=== PATIENT | female | born 1975 | race Caucasian/White ===

== ENCOUNTER 2021-09-02 12:26 | Observation (INO) ==
[2021-09-02] MEDS ORDERED: SODIUM CHLORIDE 0.9% 250 ML IV PRN ×2 (12:53→13:15)
[2021-09-02 13:09] LABS: Basophils # (auto) 0.03 K/uL (0-0.2); Basophils % (auto) 0.4 %; Eosinophils # (auto) 0.15 K/uL (0-0.5); Hematocrit (blood only) 31.9 % (37-47); Hemoglobin 9.8 g/dL (12.0-16.0); Immature Granulocytes # (auto) 0.01 K/uL (0.00-0.02); Immature Granulocytes % (auto) 0.1 %; Lymphocytes # (auto) 1.73 K/uL (1.2-3.4); Mean Corpuscular Hemoglobin 22.1 pg (25-34); Mean Corpuscular Hgb Conc 30.7 g/dL (32-36); Mean Corpuscular Volume 71.8 fL (80-100); Mean Platelet Volume 10.1 fL (7.4-10.4); Monocytes # (auto) 0.51 K/uL (0.11-0.59); Monocytes % (auto) 6.8 %; Neutrophils # (auto) 5.09 K/uL (1.4-6.5); Neutrophils % (auto) 67.7 %; Platelet Count 402 K/uL (130-400); RDW Coefficient of Variation 18.2 % (11.5-14.5); RDW Standard Deviation 47.9 fL (36.4-46.3); Red Blood Count 4.44 M/uL (4.2-5.4); White Blood Count 7.52 K/uL (4.8-10.8)
[2021-09-02 13:25] LABS: Partial Thromboplastin Ratio 0.9; Partial Thromboplastin Time 25.5 Seconds (21.0-31.0); Prothrombin Time 10.2 Seconds (9.0-12.0)
[2021-09-02 13:29] LABS: Hypochromasia Present
--- NOTE | 2021-09-02 13:38 | OB/GYN Consultation ---
Date of Consultation September 02, 2021 Assessment & Plan (1) Episode of heavy vaginal bleedin -year-old G0 virgin female with history of fibroid uterus and long history of heavy periods with abnormal uterine bleeding for the last 3 weeks and hemorrhage today, Signs stable afebrile after IV fluid hydration, Uterus is enlarged with fibroids, she was originally scheduled for laparoscopic hysterectomy on October [address] García, Discussed options of doing D&C today and putting her on oral contraceptives to stop the bleeding and then follow-up with her [employer] for laparoscopic hysterectomy as scheduled, Blood transfusion if needed, patient agrees with recommendations. All questions were answered. (2) History of heavy periods: (3) Intramural uterine fibroid: (4) Anemia: History of Present Illness Reason for Consultation: Heavy VB History of Present Illness Patient is a 46 yo G0 virgin female who has long h/o fibroid uterus and AUB/ HMB She had hysteroscopy, removal of submucosal fibroids by Dr Grimes and it did not help. She was put on Depo Provera and received 2 injections and due for 3rd one now. SHe was planning to get it tomorrow in the office. She started to have heavy VB 3 weeks ago, soaking pads in 1 hour, which got more heavier this morning, passing large cloths, dripping blood on floor. She came to ER and ER physician emptied large cloths and called me. I emptied about 50 mL of clots from vagina and there was more blood trickling from cervix. She was scheduled for laparoscopic hysterectomy on October [address] Medrano. Discussed option of stopping bleeding with either IV estrogen or oral high-dose contraceptives or proceed with D&C and clear endometrium and then observe overnight and blood transfusion as needed. She and her brother are hoping to get her scheduled laparoscopic hysterectomy today. Explained to her that laparoscopic hysterectomy should be down on a scheduled basis with whole OR team and 2 company laundry worker available. She understood and she agrees for EUA, D&C under ultrasound guidance and then stay overnight with oral contraceptives. All Questions were answered. Allergies Allergy/AdvReac Type Severity Reaction Status Date / Time milk Allergy Unknown Unverified 09/02/21 14:20 adhesive tape AdvReac Rash Unverified 09/02/21 14:20 Home Medications Medication Instructions Recorded Confirmed Type sertraline 100 mg tablet 100 mg PO QAM 09/02/21 09/02/21 History Patient History Social History Smoking Status: Never smoker Feels Safe at Home: Yes Review of Systems Constitutional: as per Subjective / HPI Physical Exam Constitutional: well developed and well nourished She is not in distress, denies pain but she is covered with blood on her legs and on the floor Gastrointestinal (Abdomen): normal bowel sounds, soft, nontender, no hepatosplenomegaly Genitourinary: normal external appearance (Covered with blood and dried clots including her perineum labia and inner t) Speculum/Bimanual Exam: normal appearance of the cervix (Emptied 50 mL of blood clots from vagina and still trickling from cervical ), + abnormal uterine size (8-week size anteverted uterus), bladder normal to palpation, normal vaginal palpation and + uterus enlarged Start ultrasound is performed by myself, uterus is enlarged about 10 cm in length with 2 all subserosal/intramural fibroids and endometrium appears to be thickened at 13 mm Results & Data ([facility]) Vital Signs (Past 12 Hours) Vital Signs Temp Pulse Resp BP Pulse Ox 09/02/21 12:27 36.6 C 105 H 20 165/100 H 98 Laboratory Results Lab Results 09/02/21 09/02/21 09/02/21 Range/Units 12:58 12:58 12:58 WBC 7.52 (4.8-10.8) K/uL RBC 4.44 (4.2-5.4) M/uL Hgb 9.8 L (12.0-16.0) g/dL Hct 31.9 L (37-47) % MCV 71.8 L (80-100) fL MCH 22.1 L (25-34) pg MCHC 30.7 L (32-36) g/dL RDW Std Deviation 47.9 H (36.4-46.3) fL RDW Coeff of Mina 18.2 H (11.5-14.5) % Plt Count 402 H (130-400) K/uL MPV 10.1 (7.4-10.4) fL Immature Gran % (Auto) 0.1 % Neut % (Auto) 67.7 % Lymph % (Auto) 23.0 % [place] % (Auto) 6.8 % Eos % (Auto) 2.0 % Baso % (Auto) 0.4 % Neut # (Auto) 5.09 (1.4-6.5) K/uL Lymph # (Auto) 1.73 (1.2-3.4) K/uL [place] # (Auto) 0.51 (0.11-0.59) K/uL Eos # (Auto) 0.15 (0-0.5) K/uL Baso # (Auto) 0.03 (0-0.2) K/uL Immature Gran # (Auto) 0.01 (0.00-0.02) K/uL Hypochromasia Present PT 10.2 (9.0-12.0) Seconds INR 1.0 (0.9-1.1) APTT 25.5 (21.0-31.0) Seconds PTT Ratio 0.9 Sodium (136-145) mmol/L Potassium (3.5-5.1) mmol/L Chloride (98-107) mmol/L Carbon Dioxide (21-32) mmol/L Anion Gap (3-11) BUN (6-23) mg/dl Creatinine (0.6-1.2) mg/dl Est Cr Clr Drug Dosing ml/min Est GFR ( Amer) ml/min Est GFR (Non-Af Amer) ml/min BUN/Creatinine Ratio (10-20) Glucose (70-99(Fasting)) mg/dl Calcium (8.5-10.1) mg/dl Total Bilirubin (0.2-1.0) mg/dl AST (13-39) U/L ALT (7-52) U/L Alkaline Phosphatase (34-104) U/L Total Protein (6.0-8.3) gm/dl Albumin (3.4-5.0) gm/dl Globulin (2.5-4.0) gm/dl Albumin/Globulin Ratio (0.9-2) HCG, Qual (Negative) SARS-CoV-2, RNA, NAAT (NEGATIVE) Blood Type O Positive Antibody Screen NEGATIVE Crossmatch See Detail 09/02/21 09/02/21 09/02/21 Range/Units 12:58 12:58 13:28 WBC (4.8-10.8) K/uL RBC (4.2-5.4) M/uL Hgb (12.0-16.0) g/dL Hct (37-47) % MCV (80-100) fL MCH (25-34) pg MCHC (32-36) g/dL RDW Std Deviation (36.4-46.3) fL RDW Coeff of Mina (11.5-14.5) % Plt Count (130-400) K/uL MPV (7.4-10.4) fL Immature Gran % (Auto) % Neut % (Auto) % Lymph % (Auto) % [place] % (Auto) % Eos % (Auto) % Baso % (Auto) % Neut # (Auto) (1.4-6.5) K/uL Lymph # (Auto) (1.2-3.4) K/uL [place] # (Auto) (0.11-0.59) K/uL Eos # (Auto) (0-0.5) K/uL Baso # (Auto) (0-0.2) K/uL Immature Gran # (Auto) (0.00-0.02) K/uL Hypochromasia PT (9.0-12.0) Seconds INR (0.9-1.1) APTT (21.0-31.0) Seconds PTT Ratio Sodium 137 (136-145) mmol/L Potassium 3.6 (3.5-5.1) mmol/L Chloride 105 (98-107) mmol/L Carbon Dioxide 23 (21-32) mmol/L Anion Gap 9 (3-11) BUN 10 (6-23) mg/dl Creatinine 0.70 (0.6-1.2) mg/dl Est Cr Clr Drug Dosing 123.3 ml/min Est GFR ( Amer) 120.4 ml/min Est GFR (Non-Af Amer) 103.9 ml/min BUN/Creatinine Ratio 14.3 (10-20) Glucose 103 H (70-99(Fasting)) mg/dl Calcium 9.4 (8.5-10.1) mg/dl Total Bilirubin 0.3 (0.2-1.0) mg/dl AST 15 (13-39) U/L ALT 13 (7-52) U/L Alkaline Phosphatase 83 (34-104) U/L Total Protein 6.9 (6.0-8.3) gm/dl Albumin 4.1 (3.4-5.0) gm/dl Globulin 2.8 (2.5-4.0) gm/dl Albumin/Globulin Ratio 1.5 (0.9-2) HCG, Qual Negative (Negative) SARS-CoV-2, RNA, NAAT NEGATIVE (NEGATIVE) Blood Type Antibody Screen Crossmatch
[2021-09-02 13:40] LABS: Albumin Globulin Ratio 1.5 (0.9-2); Albumin Level 4.1 gm/dl (3.4-5.0); BUN Creatinine Ratio 14.3 (10-20); Bilirubin,Total 0.3 mg/dl (0.2-1.0); Calcium 9.4 mg/dl (8.5-10.1); Creatinine Clr Calc Pharmacy 123.3 ml/min; Est GFR (African American) 120.4 ml/min; Est GFR (Non-African American) 103.9 ml/min; Globulin 2.8 gm/dl (2.5-4.0); Potassium 3.6 mmol/L (3.5-5.1); Total Protein 6.9 gm/dl (6.0-8.3)
[2021-09-02 13:48] LABS: Pregnancy Test, Serum Negative (Negative)
[2021-09-02] MEDS ORDERED: ceFAZolin 2000MG 2,000 MG/15 ML SYR IV ONE (14:38)
[2021-09-02] MEDS ORDERED: PROPOFOL IV EMULSION 10 MG/ML 20 ML VIAL IV ONE (14:45)
[2021-09-02] MEDS ORDERED: LIDOCAINE 2% 2 ML VIAL/AMP(20MG/ML) INFIL ONE (14:45)
[2021-09-02] MEDS ORDERED: MIDAZOLAM HCL 1 MG/ML 2ML VIAL ONE (14:46)
[2021-09-02] MEDS ORDERED: fentaNYL citrate 100 MCG/2 ML VIAL ONE (14:46)
--- NOTE | 2021-09-02 14:52 | Anesthesiology Consultation ---
Date of Service September 02, 2021 Assessment & Plan (1) Encounter for pre-operative examination: Chart Review Chart Review: Acceptable Risk for Surgery and Patient NOT seen in Pre Admission Testing Consults Requested none History Surgery Operation Date: 09/02/21 11:30 Proposed Procedures p Dilation and Curettage - Johanna Collazo MD Height/Weight Height: 5 ft 7 in Weight: 102 kg Allergies Allergy/AdvReac Type Severity Reaction Status Date / Time milk Allergy Unknown Unverified 09/02/21 14:20 adhesive tape AdvReac Rash Unverified 09/02/21 14:20 Medications Home Medications Medication Instructions Recorded Confirmed Last Taken sertraline 100 mg tablet 100 mg PO QAM 09/02/21 09/02/21 08/31/21 Social History Smoking Status: Never smoker Physical Exam Vital Signs Last Vital Signs Temp 97.9 F 09/02/21 12:27 Pulse 85 09/02/21 13:37 Resp 20 09/02/21 13:37 BP 148/106 H 09/02/21 13:03 Pulse Ox 100 09/02/21 13:37 Testing Laboratory Results 09/02/21 12:58 09/02/21 12:58 PT 10.2 Seconds (9.0-12.0) 09/02/21 12:58 INR 1.0 (0.9-1.1) 09/02/21 12:58 APTT 25.5 Seconds (21.0-31.0) 09/02/21 12:58 Blood Type O Positive 09/02/21 12:58 Antibody Screen NEGATIVE 09/02/21 12:58
[2021-09-02] MEDS ORDERED: ATROPINE SULFATE 0.1 MG/ML 10ML SYR IV PRN (15:03)
[2021-09-02] MEDS ORDERED: ONDANSETRON INJ 2 MG/ML 2 ML VIAL IV PRN ×2 (15:03→16:31)
[2021-09-02] MEDS ORDERED: ePHEDrine sulfate 50 MG/ML AMP IV PRN (15:03)
[2021-09-02] MEDS ORDERED: fentaNYL citrate 100 MCG/2 ML VIAL IV PRN (15:03)
[2021-09-02] MEDS ORDERED: SCOPOLAMINE 1 MG TDSY TD ONE (15:07)
[2021-09-02] MEDS ORDERED: SUCCINYLCHOLINE CHLORIDE 20 MG/ML 10 ML VIAL IV ONE (15:20)
[2021-09-02] MEDS ORDERED: ROCURONIUM BROMIDE 10 MG/ML 5 ML VIAL IV ONE (15:20)
[2021-09-02] MEDS ORDERED: METHYLERGONOVINE MALEATE 0.2 MG/ML AMP ONE (15:32)
--- NOTE | 2021-09-02 16:06 | Emergency Department Note ---
History of Present Illness General Chief complaint: Vaginal Bleeding Stated complaint: FIBROID ON UTERUS/BLOOD GUSHING OUT OF VAGINIA Time Seen by Provider: 09/02/21 12:30 Source: patient Mode of arrival: ambulatory Limitations: no limitations History of Present Illness This patient is a 46-year-old female who presents to the emergency department for evaluation of heavy vaginal bleeding. Patient reports that she has a history of a uterine fibroid and has had intermittent abnormal vaginal bleeding since last November. She reports that that about 30 minutes prior to arrival, she developed very heavy vaginal bleeding. She states that she has been bleeding through any pads and all of her clothes. She denies any significant pain. Home Medications Medication Instructions Recorded Confirmed Type sertraline 100 mg tablet 100 mg PO QAM 09/02/21 09/02/21 History Allergies Allergy/AdvReac Type Severity Reaction Status Date / Time milk Allergy Unknown Unverified 09/02/21 14:20 adhesive tape AdvReac Rash Unverified 09/02/21 14:20 Past Med/Surg History Medical History (Updated 09/02/21 @ 21:20 by Petty Dickey PA-C) Intramural uterine fibroid Social History Smoking Status: Never smoker Second Hand Exposure: No; Do You Dip or Chew Tobacco: No; Hx Alcohol Use: Yes Alcohol type: hard liquor Hx Substance Use: No Preferred Language: British Communication Ability: Effective Multiple Slide Operator Required: No Beliefs That Will Affect Care: None Current Living Situation: Alone Feels Safe at Home: Yes Assistive Devices: Contacts and Glasses Review of Systems A total of 10 systems reviewed and were otherwise negative Physical Exam Vital Signs Vital Signs - 24 hr 09/02/21 12:27 09/02/21 13:03 09/02/21 13:37 Temperature 36.6 C Temperature Source Temporal Artery Scan Pulse Rate 105 H 85 Pulse Rate [Apical] 108 H Pulse Rhythm Regular Regular Pulse Rhythm [Apical] Regular Pulse Strength Normal Pulse Strength [Apical] Normal Respiratory Rate 20 20 20 Respiratory Effort / Characteristics Non-Labored Spontaneous Non-Labored Spontaneous Respiratory Depth Normal Normal Respiratory Pattern Regular Regular Blood Pressure 165/100 H Blood Pressure [Left Arm] 148/106 H Blood Pressure Mean 121 Blood Pressure Mean [Left Arm] 120 Blood Pressure Position Sitting Blood Pressure Position [Left Arm] Sitting Pulse Oximetry 98 100 100 Oxygen Delivery Method Room Air Room Air Room Air Sepsis Recent Fever Within 48 Hours No Sepsis New/Unexplained Change in Mental Status N/A Sepsis Action Taken by Nursing No Action Required 09/02/21 14:50 Temperature 37.1 C Temperature Source Oral Pulse Rate Pulse Rate [Apical] 85 Pulse Rhythm Pulse Rhythm [Apical] Regular Pulse Strength Pulse Strength [Apical] Normal Respiratory Rate 20 Respiratory Effort / Characteristics Non-Labored Spontaneous Respiratory Depth Normal Respiratory Pattern Regular Blood Pressure Blood Pressure [Left Arm] 166/98 H Blood Pressure Mean Blood Pressure Mean [Left Arm] 120 Blood Pressure Position Blood Pressure Position [Left Arm] Sitting Pulse Oximetry 99 Oxygen Delivery Method Room Air Sepsis Recent Fever Within 48 Hours Sepsis New/Unexplained Change in Mental Status Sepsis Action Taken by Nursing VITALS: Vitals are noted on the nurse's note and reviewed by myself. GENERAL: This is a 46-year-old female, in no acute distress, well-developed well-nourished. SKIN: No rashes. EYES: Pupils equal round and reactive to light and accommodation. MOUTH: Mucous membranes moist. NECK: Supple without nuchal rigidity. HEART: Regular rate and rhythm without murmurs gallops or rubs. LUNGS: Clear to auscultation bilaterally without wheezes, rales or rhonchi. ABDOMEN: Positive bowel sounds x 4. Soft, nontender to palpation. PELVIC: Normal external female genitalia. Significant amount of blood within the vaginal vault. Cervix unable to be visualized due to bleeding. NEURO: Patient was alert and oriented to person place and time. Course Administered Medications Docusate Sodium (Docusate Sodium 100 Mg Cap) 100 mg PO BID ASYA Stop: 10/02/21 20:59 Last Admin: 09/02/21 20:23 Dose: 100 mg Documented by: [id number] Sertraline HCl (Sertraline Hcl 100 Mg Tablet) 100 mg PO QPM ASYA Stop: 10/02/21 20:59 Last Admin: 09/02/21 20:24 Dose: 100 mg Documented by: [id number] Discontinued Medications Cefazolin Sodium (Ancef 2000mg) 2,000 mg in 15 mls @ 3.75 mls/min IV PREOP ONE Stop: 09/02/21 14:41 Last Admin: 09/02/21 15:45 Dose: 3.75 mls/min Documented by: [id number] Medroxyprogesterone Acetate (Medroxyprogesterone Acetate 150 Mg/Ml Vial) 150 mg IM ONE ONE Stop: 09/02/21 17:04 Last Admin: 09/02/21 19:47 Dose: 150 mg Documented by: [id number] Methylergonovine Maleate (Methylergonovine Maleate 0.2 Mg/Ml Amp) Confirm Administered Dose 0.2 mg .ROUTE .STK-MED ONE Stop: 09/02/21 15:33 Last Admin: 09/02/21 16:22 Dose: 0.2 mg Documented by: [id number] Cosigned by: [id number] Misoprostol (Misoprostol 200 Mcg Tab) Confirm Administered Dose 1,000 mcg .ROUTE .STK-MED ONE Stop: 09/02/21 16:21 Last Admin: 09/02/21 16:22 Dose: 1,000 mcg Documented by: [id number] Scopolamine (Scopolamine 1 Mg Tdsy) Confirm Administered Dose 1 mg TD .STK-MED ONE Stop: 09/02/21 15:08 Last Admin: 09/02/21 15:14 Dose: 1 mg Documented by: [id number] Silver Nitrate/Potassium Nitrate (Silver Nitr/Potassium Nitrate Applicator) Confirm Administered Dose 4 appl .ROUTE .STK-MED ONE Stop: 09/02/21 16:23 Last Admin: 09/02/21 16:25 Dose: 4 appl Documented by: [id number] Critical Care Time Critical Care Time: Yes Total Critical Care Time: 50 I have personally spent greater than 50 minutes of critical care time in the direct management of this patient. This includes bedside care, interpretation of diagnostic studies, and testing, discussion with consultants, patient, and family members, and other required patient management activities. This 50 minutes is in excess of all separately billable procedures. Medical Decision Making Differential Diagnosis Etiologies such as threatened AB, miscarriage, ectopic , dysfunction uterine bleeding, bleeding dyscrasia, trauma, infection, as well as others were entertained. Home Medications Current Medication List: was personally reviewed by me Laboratory Data Attestation: I reviewed the patient's lab results. Result diagrams: 09/02/21 19:58 09/02/21 12:58 Lab Results 09/02/21 09/02/21 09/02/21 Range/Units 12:58 12:58 12:58 WBC 7.52 (4.8-10.8) K/uL RBC 4.44 (4.2-5.4) M/uL Hgb 9.8 L (12.0-16.0) g/dL Hct 31.9 L (37-47) % MCV 71.8 L (80-100) fL MCH 22.1 L (25-34) pg MCHC 30.7 L (32-36) g/dL RDW Std Deviation 47.9 H (36.4-46.3) fL RDW Coeff of Mina 18.2 H (11.5-14.5) % Plt Count 402 H (130-400) K/uL MPV 10.1 (7.4-10.4) fL Immature Gran % (Auto) 0.1 % Neut % (Auto) 67.7 % Lymph % (Auto) 23.0 % Saunders % (Auto) 6.8 % Eos % (Auto) 2.0 % Baso % (Auto) 0.4 % Neut # (Auto) 5.09 (1.4-6.5) K/uL Lymph # (Auto) 1.73 (1.2-3.4) K/uL Saunders # (Auto) 0.51 (0.11-0.59) K/uL Eos # (Auto) 0.15 (0-0.5) K/uL Baso # (Auto) 0.03 (0-0.2) K/uL Immature Gran # (Auto) 0.01 (0.00-0.02) K/uL Hypochromasia Present PT 10.2 (9.0-12.0) Seconds INR 1.0 (0.9-1.1) APTT 25.5 (21.0-31.0) Seconds PTT Ratio 0.9 Sodium (136-145) mmol/L Potassium (3.5-5.1) mmol/L Chloride (98-107) mmol/L Carbon Dioxide (21-32) mmol/L Anion Gap (3-11) BUN (6-23) mg/dl Creatinine (0.6-1.2) mg/dl Est Cr Clr Drug Dosing ml/min Est GFR ( Amer) ml/min Est GFR (Non-Af Amer) ml/min BUN/Creatinine Ratio (10-20) Glucose (70-99(Fasting)) mg/dl Calcium (8.5-10.1) mg/dl Total Bilirubin (0.2-1.0) mg/dl AST (13-39) U/L ALT (7-52) U/L Alkaline Phosphatase (34-104) U/L Total Protein (6.0-8.3) gm/dl Albumin (3.4-5.0) gm/dl Globulin (2.5-4.0) gm/dl Albumin/Globulin Ratio (0.9-2) HCG, Qual (Negative) SARS-CoV-2, RNA, NAAT (NEGATIVE) Blood Type O Positive Blood Type Recheck Antibody Screen NEGATIVE Crossmatch See Detail 09/02/21 09/02/21 09/02/21 Range/Units 12:58 12:58 13:28 WBC (4.8-10.8) K/uL RBC (4.2-5.4) M/uL Hgb (12.0-16.0) g/dL Hct (37-47) % MCV (80-100) fL MCH (25-34) pg MCHC (32-36) g/dL RDW Std Deviation (36.4-46.3) fL RDW Coeff of Mina (11.5-14.5) % Plt Count (130-400) K/uL MPV (7.4-10.4) fL Immature Gran % (Auto) % Neut % (Auto) % Lymph % (Auto) % [place] % (Auto) % Eos % (Auto) % Baso % (Auto) % Neut # (Auto) (1.4-6.5) K/uL Lymph # (Auto) (1.2-3.4) K/uL Saunders # (Auto) (0.11-0.59) K/uL Eos # (Auto) (0-0.5) K/uL Baso # (Auto) (0-0.2) K/uL Immature Gran # (Auto) (0.00-0.02) K/uL Hypochromasia PT (9.0-12.0) Seconds INR (0.9-1.1) APTT (21.0-31.0) Seconds PTT Ratio Sodium 137 (136-145) mmol/L Potassium 3.6 (3.5-5.1) mmol/L Chloride 105 (98-107) mmol/L Carbon Dioxide 23 (21-32) mmol/L Anion Gap 9 (3-11) BUN 10 (6-23) mg/dl Creatinine 0.70 (0.6-1.2) mg/dl Est Cr Clr Drug Dosing 123.3 ml/min Est GFR ( Amer) 120.4 ml/min Est GFR (Non-Af Amer) 103.9 ml/min BUN/Creatinine Ratio 14.3 (10-20) Glucose 103 H (70-99(Fasting)) mg/dl Calcium 9.4 (8.5-10.1) mg/dl Total Bilirubin 0.3 (0.2-1.0) mg/dl AST 15 (13-39) U/L ALT 13 (7-52) U/L Alkaline Phosphatase 83 (34-104) U/L Total Protein 6.9 (6.0-8.3) gm/dl Albumin 4.1 (3.4-5.0) gm/dl Globulin 2.8 (2.5-4.0) gm/dl Albumin/Globulin Ratio 1.5 (0.9-2) HCG, Qual Negative (Negative) SARS-CoV-2, RNA, NAAT NEGATIVE (NEGATIVE) Blood Type Blood Type Recheck Antibody Screen Crossmatch 09/02/21 Range/Units 14:18 WBC (4.8-10.8) K/uL RBC (4.2-5.4) M/uL Hgb (12.0-16.0) g/dL Hct (37-47) % MCV (80-100) fL MCH (25-34) pg MCHC (32-36) g/dL RDW Std Deviation (36.4-46.3) fL RDW Coeff of Mina (11.5-14.5) % Plt Count (130-400) K/uL MPV (7.4-10.4) fL Immature Gran % (Auto) % Neut % (Auto) % Lymph % (Auto) % [place] % (Auto) % Eos % (Auto) % Baso % (Auto) % Neut # (Auto) (1.4-6.5) K/uL Lymph # (Auto) (1.2-3.4) K/uL [place]unders # (Auto) (0.11-0.59) K/uL Eos # (Auto) (0-0.5) K/uL Baso # (Auto) (0-0.2) K/uL Immature Gran # (Auto) (0.00-0.02) K/uL Hypochromasia PT (9.0-12.0) Seconds INR (0.9-1.1) APTT (21.0-31.0) Seconds PTT Ratio Sodium (136-145) mmol/L Potassium (3.5-5.1) mmol/L Chloride (98-107) mmol/L Carbon Dioxide (21-32) mmol/L Anion Gap (3-11) BUN (6-23) mg/dl Creatinine (0.6-1.2) mg/dl Est Cr Clr Drug Dosing ml/min Est GFR ( Amer) ml/min Est GFR (Non-Af Amer) ml/min BUN/Creatinine Ratio (10-20) Glucose (70-99(Fasting)) mg/dl Calcium (8.5-10.1) mg/dl Total Bilirubin (0.2-1.0) mg/dl AST (13-39) U/L ALT (7-52) U/L Alkaline Phosphatase (34-104) U/L Total Protein (6.0-8.3) gm/dl Albumin (3.4-5.0) gm/dl Globulin (2.5-4.0) gm/dl Albumin/Globulin Ratio (0.9-2) HCG, Qual (Negative) SARS-CoV-2, RNA, NAAT (NEGATIVE) Blood Type Blood Type Recheck O Positive Antibody Screen Crossmatch MDM Narrative Continuous naval designer: Order was placed for continuous naval designer. Patient was placed on the naval designer. Patient was noted to be in normal sinus rhythm at an initial rate of 90 bpm. The patient is a 46-year-old female who presents today complaining of heavy vaginal bleeding. Patient has a history of a fibroid and began with heavy bleeding 1 hour prior to arrival. On examination, she has very heavy vaginal bleeding which was not cleared using cleaning swabs. PHYSICAL THERAPY AIDES TEACHER was consulted and did arrive at bedside. They ultimately elected to take the patient to the OR for D&C. 1 unit of blood was ordered while the patient was in the emergency department. Patient remained stable while under the care of the emergency department. Impression & Plan Episode of heavy vaginal bleeding, Intramural uterine fibroid, Anemia Discharge Plan Visit Data Chief Complaint: Vaginal Bleeding Stated Complaint: FIBROID ON UTERUS/BLOOD GUSHING OUT OF VAGINIA ED Provider: Alfred Colon ED Midlevel Provider: Petty Dickey Discharge Problem: Episode of heavy vaginal bleeding, Intramural uterine fibroid, Anemia Patient Disposition: Admitted As Inpatient Discharge Instructions Interventions: ED Discharge Assessment Last Done: 09/02/21 19:17
[2021-09-02] MEDS ORDERED: miSOPROStoL 200 MCG TAB ONE (16:20)
[2021-09-02] MEDS ORDERED: SILVER NITR/POTASSIUM NITRATE APPLICATOR ONE (16:22)
[2021-09-02] MEDS ORDERED: MEPERIDINE HCL 50 MG/ML CARP IV PRN (16:31)
[2021-09-02] MEDS ORDERED: ZOLPIDEM TARTRATE 5 MG TAB PO PRN (16:31)
[2021-09-02] MEDS ORDERED: MEPERIDINE HCL 25 MG/ML CARP/VIAL IV PRN (16:31)
[2021-09-02] MEDS ORDERED: oxyCODONE/ACETAMINOPHEN 5mg/325mg TAB PO PRN ×2 (16:31)
[2021-09-02] MEDS ORDERED: bisacodyL 10 MG SUPP PR PRN (16:31)
[2021-09-02] MEDS ORDERED: PROMETHAZINE HCL 12.5 MG in SODIUM CHLORIDE 0.9% 50 ML IV PRN (16:31)
[2021-09-02] MEDS ORDERED: ACETAMINOPHEN 325 MG TAB PO PRN (16:31)
[2021-09-02] MEDS ORDERED: SIMETHICONE 80 MG CHEW PO PRN (16:31)
[2021-09-02] MEDS ORDERED: LEUPROLIDE ACETATE 3.75 MG IM ONE (16:34)
--- NOTE | 2021-09-02 16:36 | Post Operative Brief Note ---
Immediate Post Op Note v1 Date of Surgery September 02, 2021 Pre & Post Diagnosis Operation Date: 09/02/21 11:30 Pre-Op Diagnosis: FIBROID ON UTERUS/heavy vaginal bleeding Post-Op Diagnosis: FIBROID ON UTERUS/heavy vaginal bleeding I identified the patient and participated in the time-out.: Yes Procedure Operation Date: 09/02/21 11:30 Actual Procedures EUA, Dilation and Curettage(Not Applicable) under US guidance - Johanna Salguero MD Surgeon Johanna Collazo MD Panelbeater Dr Hayes Estimated Blood Loss 50 Findings Consistent with Post-Op Diagnosis Drains Other (metal straight cath done for 300ml clear yellow urine) Anesthesia Type General Complications none Disposition Accompanied Patient To Recovery: Yes
[2021-09-02] MEDS ORDERED: LACTATED RINGER'S 1,000 ML IV SCH (16:45)
[2021-09-02 17:15] LABS: Hematocrit (blood only) 32.2 % (37-47); Hemoglobin 9.7 g/dL (12.0-16.0)
--- NOTE | 2021-09-02 17:38 | Anesthesiology Progress Note ---
Date of Service September 02, 2021 Anesthesia Post Procedure Vital Signs Vital Signs: Temp Pulse Pulse Resp BP BP Pulse Ox 09/02/21 17:30 72 18 154/97 H 98 09/02/21 17:20 67 20 160/99 H 100 09/02/21 17:10 68 14 159/96 H 100 09/02/21 17:00 70 18 151/97 H 100 09/02/21 16:50 79 22 155/92 H 100 09/02/21 16:42 36.5 C 92 H 20 151/91 H 95 09/02/21 14:50 37.1 C 85 20 166/98 H 99 09/02/21 13:37 85 20 100 09/02/21 13:03 108 H 20 148/106 H 100 09/02/21 12:27 36.6 C 105 H 20 165/100 H 98 Pain Intensity Vaginal: Pain Intensity: 2 Transfer of Care Handoff Completed per policy Notes Mental Status: alert / awake / arousable and participated in evaluation Patient Amnestic to Procedure: Yes Nausea / Vomiting: adequately controlled Pain: adequately controlled Airway Patency, RR, SpO2: stable & adequate BP & HR: stable & adequate Hydration State: stable & adequate Anesthetic Complications: no major complications apparent and Pt Satisfied with anesthetic care
[2021-09-02 20:12] LABS: Hematocrit (blood only) 30.4 % (37-47); Hemoglobin 9.3 g/dL (12.0-16.0)
[2021-09-02] MEDS ORDERED: Nursing to Pharmacy Communication SCH (20:15)
[2021-09-02] MEDS: DOCUSATE SODIUM 100 MG CAP PO SCH (20:23)
[2021-09-02] MEDS ORDERED: SERTRALINE HCL 100 MG TABLET PO SCH ×2 (21:00)
[2021-09-02] MEDS: IBUPROFEN 600 MG TAB PO PRN (21:44)
--- NOTE | 2021-09-02 22:56 | Operative Report (OR) ---
DATE OF SURGERY: 09/02/2021. PREOPERATIVE DIAGNOSES: The patient is a 46-year-old G0 female with history of fibroid uterus, heavy periods, and on Depo-Provera, and presenting with episodes of heavy vaginal bleeding and anemia. POSTOPERATIVE DIAGNOSES: The patient is a 46-year-old G0 female with history of fibroid uterus, heavy periods, and on Depo-Provera, and presenting with episodes of heavy vaginal bleeding and anemia. PROCEDURE: Exam under anesthesia, dilatation and curettage under ultrasound guidance. SURGEON: Johanna Collazo MD BUMPER MACHINE OPERATOR: Chintan Hayes MD ESTIMATED BLOOD LOSS: 50 mL. DRAINS: Straight catheter drained 300 mL of clear urine. ANESTHESIA: General endotracheal. COMPLICATIONS: None. FINDINGS: Exam under anesthesia revealed 10-week size anteverted uterus, nonpalpable adnexa. Before procedure, bedside abdominopelvic ultrasound was done by training technician. The uterus was measured to be 11.5 cm in length and there was a 2.5X 3 cm anterior intramural / subserosal fibroid as well as there was a posterior about 5X6 cm fibroid on the posterior uterine wall intramural, minimally abutting the endometrium. Endometrium appeared to be normal. DESCRIPTION OF PROCEDURE: The patient was taken to the Operating Room where general anesthesia was given without difficulty. She was placed in dorsal lithotomy position, prepared and draped in the usual sterile fashion and a timeout was done. She was given 2 grams of cefazolin before surgery. Then bladder was drained with a straight catheter and then examination under anesthesia was done with the above findings. A speculum was placed in the patient's vagina. Cervix was visualized, grasped with single tooth tenaculum, and cervix was dilated with Hegar dilators until #10, and a small curette was placed into the uterus under ultrasound guidance and then uterine cavity was curetted and small amount of bloody and endometrial tissue was obtained. The endometrial cavity was smooth on the anterior and lateral friedman and there was a minimal bulge on the posterior wall with no intracavitary displacement. Then polyp forceps was introduced from cervix under ultrasound guidance and grabbed tissue with bloody endometrium and taken out and then curette was repeated until uterine cry sensation was felt in all quadrants and the uterus was felt to be empty and bleeding was minimal. Then instruments were removed from the patient's vagina. Cervix was visualized and no bleeding from tenaculum site and no bleeding from cervical os at the end of the procedure. She was given 1000 mcg of rectal Cytotec and 0.2 mg of IM Methergine. She tolerated the procedure well. Sponge, lap, needle count was correct x2. She was taken off from lithotomy position, extubated successfully. She was taken to Recovery Room in stable condition. No complications happened. I was and Dr. Hayes was present during whole procedure. My campaign assistant was needed to do retraction and hemostasis control and interpretation of ultrasound during procedure. Job ID: [id number] [facility]
--- NOTE | 2021-09-02 23:24 | Obstetrical Progress Note ---
Date of Service September 02, 2021 Assessment & Plan Admission and Anticipated Discharge Date Admission Date: September 02, 2021 Subjective Postop check Patient is seen and examined Feels well, no complaints Pain is under control with meds No CP/ SOB/ Dizziness/ N&V/ VB/ Leg pain OOB to BRX2 voided without problems. Tolerating clears and regular diet. Minimal VB Explained about the surgery and findings Vital Signs Temp Pulse Pulse Pulse Resp BP BP 09/02/21 23:19 36.9 C 65 16 121/79 09/02/21 20:30 36.8 C 82 16 144/59 H 09/02/21 19:30 36.9 C 76 16 129/69 09/02/21 18:52 36.6 C 74 18 161/75 H 09/02/21 18:10 36.8 C 66 18 151/85 H 09/02/21 17:50 36.4 C L 88 16 154/91 H 09/02/21 17:40 36.4 C L 69 18 152/88 H 09/02/21 17:30 72 18 154/97 H 09/02/21 17:20 67 20 160/99 H 09/02/21 17:10 68 14 159/96 H 09/02/21 17:00 70 18 151/97 H 09/02/21 16:50 79 22 155/92 H 09/02/21 16:42 36.5 C 92 H 20 151/91 H 09/02/21 14:50 37.1 C 85 20 166/98 H 09/02/21 13:37 85 20 09/02/21 13:03 108 H 20 148/106 H 09/02/21 12:27 36.6 C 105 H 20 165/100 H Pulse Ox 09/02/21 23:19 97 09/02/21 20:30 100 09/02/21 19:30 97 09/02/21 18:52 98 09/02/21 18:10 98 09/02/21 17:50 98 09/02/21 17:40 98 09/02/21 17:30 98 09/02/21 17:20 100 09/02/21 17:10 100 09/02/21 17:00 100 09/02/21 16:50 100 09/02/21 16:42 95 09/02/21 14:50 99 09/02/21 13:37 100 09/02/21 13:03 100 09/02/21 12:27 98 Lab Results 09/02/21 09/02/21 09/02/21 Range/Units 12:58 12:58 12:58 WBC 7.52 (4.8-10.8) K/uL RBC 4.44 (4.2-5.4) M/uL Hgb 9.8 L (12.0-16.0) g/dL Hct 31.9 L (37-47) % MCV 71.8 L (80-100) fL MCH 22.1 L (25-34) pg MCHC 30.7 L (32-36) g/dL RDW Std Deviation 47.9 H (36.4-46.3) fL RDW Coeff of Mina 18.2 H (11.5-14.5) % Plt Count 402 H (130-400) K/uL MPV 10.1 (7.4-10.4) fL Immature Gran % (Auto) 0.1 % Neut % (Auto) 67.7 % Lymph % (Auto) 23.0 % [place] % (Auto) 6.8 % Eos % (Auto) 2.0 % Baso % (Auto) 0.4 % Neut # (Auto) 5.09 (1.4-6.5) K/uL Lymph # (Auto) 1.73 (1.2-3.4) K/uL [place] # (Auto) 0.51 (0.11-0.59) K/uL Eos # (Auto) 0.15 (0-0.5) K/uL Baso # (Auto) 0.03 (0-0.2) K/uL Immature Gran # (Auto) 0.01 (0.00-0.02) K/uL Hypochromasia Present PT 10.2 (9.0-12.0) Seconds INR 1.0 (0.9-1.1) APTT 25.5 (21.0-31.0) Seconds PTT Ratio 0.9 Sodium (136-145) mmol/L Potassium (3.5-5.1) mmol/L Chloride (98-107) mmol/L Carbon Dioxide (21-32) mmol/L Anion Gap (3-11) BUN (6-23) mg/dl Creatinine (0.6-1.2) mg/dl Est Cr Clr Drug Dosing ml/min Est GFR ( Amer) ml/min Est GFR (Non-Af Amer) ml/min BUN/Creatinine Ratio (10-20) Glucose (70-99(Fasting)) mg/dl Calcium (8.5-10.1) mg/dl Total Bilirubin (0.2-1.0) mg/dl AST (13-39) U/L ALT (7-52) U/L Alkaline Phosphatase (34-104) U/L Total Protein (6.0-8.3) gm/dl Albumin (3.4-5.0) gm/dl Globulin (2.5-4.0) gm/dl Albumin/Globulin Ratio (0.9-2) HCG, Qual (Negative) SARS-CoV-2, RNA, NAAT (NEGATIVE) Blood Type O Positive Blood Type Recheck Antibody Screen NEGATIVE Crossmatch See Detail 09/02/21 09/02/21 09/02/21 Range/Units 12:58 12:58 13:28 WBC (4.8-10.8) K/uL RBC (4.2-5.4) M/uL Hgb (12.0-16.0) g/dL Hct (37-47) % MCV (80-100) fL MCH (25-34) pg MCHC (32-36) g/dL RDW Std Deviation (36.4-46.3) fL RDW Coeff of Mina (11.5-14.5) % Plt Count (130-400) K/uL MPV (7.4-10.4) fL Immature Gran % (Auto) % Neut % (Auto) % Lymph % (Auto) % [place] % (Auto) % Eos % (Auto) % Baso % (Auto) % Neut # (Auto) (1.4-6.5) K/uL Lymph # (Auto) (1.2-3.4) K/uL [place] # (Auto) (0.11-0.59) K/uL Eos # (Auto) (0-0.5) K/uL Baso # (Auto) (0-0.2) K/uL Immature Gran # (Auto) (0.00-0.02) K/uL Hypochromasia PT (9.0-12.0) Seconds INR (0.9-1.1) APTT (21.0-31.0) Seconds PTT Ratio Sodium 137 (136-145) mmol/L Potassium 3.6 (3.5-5.1) mmol/L Chloride 105 (98-107) mmol/L Carbon Dioxide 23 (21-32) mmol/L Anion Gap 9 (3-11) BUN 10 (6-23) mg/dl Creatinine 0.70 (0.6-1.2) mg/dl Est Cr Clr Drug Dosing 123.3 ml/min Est GFR ( Amer) 120.4 ml/min Est GFR (Non-Af Amer) 103.9 ml/min BUN/Creatinine Ratio 14.3 (10-20) Glucose 103 H (70-99(Fasting)) mg/dl Calcium 9.4 (8.5-10.1) mg/dl Total Bilirubin 0.3 (0.2-1.0) mg/dl AST 15 (13-39) U/L ALT 13 (7-52) U/L Alkaline Phosphatase 83 (34-104) U/L Total Protein 6.9 (6.0-8.3) gm/dl Albumin 4.1 (3.4-5.0) gm/dl Globulin 2.8 (2.5-4.0) gm/dl Albumin/Globulin Ratio 1.5 (0.9-2) HCG, Qual Negative (Negative) SARS-CoV-2, RNA, NAAT NEGATIVE (NEGATIVE) Blood Type Blood Type Recheck Antibody Screen Crossmatch 09/02/21 09/02/21 09/02/21 Range/Units 14:18 16:57 19:58 WBC (4.8-10.8) K/uL RBC (4.2-5.4) M/uL Hgb 9.7 L 9.3 L (12.0-16.0) g/dL Hct 32.2 L 30.4 L (37-47) % MCV (80-100) fL MCH (25-34) pg MCHC (32-36) g/dL RDW Std Deviation (36.4-46.3) fL RDW Coeff of Mina (11.5-14.5) % Plt Count (130-400) K/uL MPV (7.4-10.4) fL Immature Gran % (Auto) % Neut % (Auto) % Lymph % (Auto) % [place] % (Auto) % Eos % (Auto) % Baso % (Auto) % Neut # (Auto) (1.4-6.5) K/uL Lymph # (Auto) (1.2-3.4) K/uL [place] # (Auto) (0.11-0.59) K/uL Eos # (Auto) (0-0.5) K/uL Baso # (Auto) (0-0.2) K/uL Immature Gran # (Auto) (0.00-0.02) K/uL Hypochromasia PT (9.0-12.0) Seconds INR (0.9-1.1) APTT (21.0-31.0) Seconds PTT Ratio Sodium (136-145) mmol/L Potassium (3.5-5.1) mmol/L Chloride (98-107) mmol/L Carbon Dioxide (21-32) mmol/L Anion Gap (3-11) BUN (6-23) mg/dl Creatinine (0.6-1.2) mg/dl Est Cr Clr Drug Dosing ml/min Est GFR ( Amer) ml/min Est GFR (Non-Af Amer) ml/min BUN/Creatinine Ratio (10-20) Glucose (70-99(Fasting)) mg/dl Calcium (8.5-10.1) mg/dl Total Bilirubin (0.2-1.0) mg/dl AST (13-39) U/L ALT (7-52) U/L Alkaline Phosphatase (34-104) U/L Total Protein (6.0-8.3) gm/dl Albumin (3.4-5.0) gm/dl Globulin (2.5-4.0) gm/dl Albumin/Globulin Ratio (0.9-2) HCG, Qual (Negative) SARS-CoV-2, RNA, NAAT (NEGATIVE) Blood Type Blood Type Recheck O Positive Antibody Screen Crossmatch PE: General: Alert, orientedx3, NAD CVS: S1S2 RRR Lungs: CTAB Abd: soft, NT, ND, BS+, Light VB Ext: NT, no edema AP: 46 yo female s/p EUA, D&C for HMB , pod#0 VSS Afebrile doing well H&H stable, Continue to routine postop care Encourage PO intake, may ambulate D/C home in am Results & Data ([facility]) Vital Signs (Past 12 Hours) Vital Signs Temp Pulse Pulse Pulse Resp BP BP 09/02/21 23:19 36.9 C 65 16 121/79 09/02/21 20:30 36.8 C 82 16 144/59 H 09/02/21 19:30 36.9 C 76 16 129/69 09/02/21 18:52 36.6 C 74 18 161/75 H 09/02/21 18:10 36.8 C 66 18 151/85 H 09/02/21 17:50 36.4 C L 88 16 154/91 H 09/02/21 17:40 36.4 C L 69 18 152/88 H 09/02/21 17:30 72 18 154/97 H 09/02/21 17:20 67 20 160/99 H 09/02/21 17:10 68 14 159/96 H 09/02/21 17:00 70 18 151/97 H 09/02/21 16:50 79 22 155/92 H 09/02/21 16:42 36.5 C 92 H 20 151/91 H 09/02/21 14:50 37.1 C 85 20 166/98 H 09/02/21 13:37 85 20 09/02/21 13:03 108 H 20 148/106 H 09/02/21 12:27 36.6 C 105 H 20 165/100 H Pulse Ox 09/02/21 23:19 97 09/02/21 20:30 100 09/02/21 19:30 97 09/02/21 18:52 98 09/02/21 18:10 98 09/02/21 17:50 98 09/02/21 17:40 98 09/02/21 17:30 98 09/02/21 17:20 100 09/02/21 17:10 100 09/02/21 17:00 100 09/02/21 16:50 100 09/02/21 16:42 95 09/02/21 14:50 99 09/02/21 13:37 100 09/02/21 13:03 100 09/02/21 12:27 98
[2021-09-03 06:20] LABS: Basophils # (auto) 0.01 K/uL (0-0.2); Basophils % (auto) 0.1 %; Eosinophils # (auto) 0.01 K/uL (0-0.5); Eosinophils % (auto) 0.1 %; Hematocrit (blood only) 27.9 % (37-47); Hemoglobin 8.3 g/dL (12.0-16.0); Immature Granulocytes # (auto) 0.03 K/uL (0.00-0.02); Immature Granulocytes % (auto) 0.3 %; Lymphocytes # (auto) 1.06 K/uL (1.2-3.4); Lymphocytes % (auto) 10.9 %; Mean Corpuscular Hemoglobin 21.8 pg (25-34); Mean Corpuscular Hgb Conc 29.7 g/dL (32-36); Mean Corpuscular Volume 73.4 fL (80-100); Monocytes # (auto) 0.65 K/uL (0.11-0.59); Monocytes % (auto) 6.7 %; Neutrophils # (auto) 7.97 K/uL (1.4-6.5); Neutrophils % (auto) 81.9 %; Platelet Count 362 K/uL (130-400); RDW Coefficient of Variation 18.5 % (11.5-14.5); RDW Standard Deviation 49.8 fL (36.4-46.3); White Blood Count 9.73 K/uL (4.8-10.8)
[2021-09-03 06:43] LABS: Hypochromasia Present; Ovalocytes 1+; Polychromasia 1+
[2021-09-03 06:49] LABS: BUN Creatinine Ratio 14.1 (10-20); Calcium 8.7 mg/dl (8.5-10.1); Creatinine Clr Calc Pharmacy 108.9 ml/min; Est GFR (African American) 105.7 ml/min; Est GFR (Non-African American) 91.2 ml/min
[2021-09-03] MEDS: DOCUSATE SODIUM 100 MG CAP PO SCH (07:37)
[2021-09-03] MEDS: IBUPROFEN 600 MG TAB PO PRN (07:37)
[2021-09-03] MEDS ORDERED: FERROUS SULFATE 325 MG TAB PO SCH (08:00)
[2021-09-03] MEDS ORDERED: SERTRALINE HCL 100 MG TABLET PO SCH (09:00)
--- NOTE | 2021-09-03 09:58 | Gynecologic Progress Note ---
Date of Service September 03, 2021 Assessment & Plan Admission and Anticipated Discharge Date Admission Date: September 02, 2021 Subjective doing well. bleeding has slowed significantly. Review of Systems Review of Systems: All systems reviewed & are unremarkable except as noted in HPI & below Physical Exam Constitutional: WD/WN, vitals as above abdomen soft and non-tender. no edema. neg Levy''s for d/c this AM and f/u in office Results & Data ([facility]) Vital Signs (Past 12 Hours) Vital Signs Temp Pulse Resp BP Pulse Ox 09/03/21 09:53 37.0 C 76 20 119/79 99 09/03/21 07:30 37.0 C 76 20 119/79 99 09/03/21 03:59 36.7 C 60 16 112/73 96 09/02/21 23:19 36.9 C 65 16 121/79 97 Laboratory Results Laboratory Results - last 24 hr 09/02/21 09/02/21 09/02/21 12:58 12:58 12:58 WBC 7.52 RBC 4.44 Hgb 9.8 L Hct 31.9 L MCV 71.8 L MCH 22.1 L MCHC 30.7 L RDW Std Deviation 47.9 H RDW Coeff of Mina 18.2 H Plt Count 402 H MPV 10.1 Immature Gran % (Auto) 0.1 Neut % (Auto) 67.7 Lymph % (Auto) 23.0 [place] % (Auto) 6.8 Eos % (Auto) 2.0 Baso % (Auto) 0.4 Neut # (Auto) 5.09 Lymph # (Auto) 1.73 [place] # (Auto) 0.51 Eos # (Auto) 0.15 Baso # (Auto) 0.03 Immature Gran # (Auto) 0.01 Polychromasia Hypochromasia Present Ovalocytes PT 10.2 INR 1.0 APTT 25.5 PTT Ratio 0.9 Sodium Potassium Chloride Carbon Dioxide Anion Gap BUN Creatinine Est Cr Clr Drug Dosing Est GFR ( Amer) Est GFR (Non-Af Amer) BUN/Creatinine Ratio Glucose Calcium Total Bilirubin AST ALT Alkaline Phosphatase Total Protein Albumin Globulin Albumin/Globulin Ratio HCG, Qual SARS-CoV-2, RNA, NAAT Blood Type O Positive Blood Type Recheck Antibody Screen NEGATIVE Crossmatch See Detail 09/02/21 09/02/21 09/02/21 12:58 12:58 13:28 WBC RBC Hgb Hct MCV MCH MCHC RDW Std Deviation RDW Coeff of Mina Plt Count MPV Immature Gran % (Auto) Neut % (Auto) Lymph % (Auto) [place] % (Auto) Eos % (Auto) Baso % (Auto) Neut # (Auto) Lymph # (Auto) [place] # (Auto) Eos # (Auto) Baso # (Auto) Immature Gran # (Auto) Polychromasia Hypochromasia Ovalocytes PT INR APTT PTT Ratio Sodium 137 Potassium 3.6 Chloride 105 Carbon Dioxide 23 Anion Gap 9 BUN 10 Creatinine 0.70 Est Cr Clr Drug Dosing 123.3 Est GFR ( Amer) 120.4 Est GFR (Non-Af Amer) 103.9 BUN/Creatinine Ratio 14.3 Glucose 103 H Calcium 9.4 Total Bilirubin 0.3 AST 15 ALT 13 Alkaline Phosphatase 83 Total Protein 6.9 Albumin 4.1 Globulin 2.8 Albumin/Globulin Ratio 1.5 HCG, Qual Negative SARS-CoV-2, RNA, NAAT NEGATIVE Blood Type Blood Type Recheck Antibody Screen Crossmatch 09/02/21 09/02/21 09/02/21 14:18 16:57 19:58 WBC RBC Hgb 9.7 L 9.3 L Hct 32.2 L 30.4 L MCV MCH MCHC RDW Std Deviation RDW Coeff of Mina Plt Count MPV Immature Gran % (Auto) Neut % (Auto) Lymph % (Auto) [place] % (Auto) Eos % (Auto) Baso % (Auto) Neut # (Auto) Lymph # (Auto) [place] # (Auto) Eos # (Auto) Baso # (Auto) Immature Gran # (Auto) Polychromasia Hypochromasia Ovalocytes PT INR APTT PTT Ratio Sodium Potassium Chloride Carbon Dioxide Anion Gap BUN Creatinine Est Cr Clr Drug Dosing Est GFR ( Amer) Est GFR (Non-Af Amer) BUN/Creatinine Ratio Glucose Calcium Total Bilirubin AST ALT Alkaline Phosphatase Total Protein Albumin Globulin Albumin/Globulin Ratio HCG, Qual SARS-CoV-2, RNA, NAAT Blood Type Blood Type Recheck O Positive Antibody Screen Crossmatch 09/03/21 09/03/21 05:49 05:49 WBC 9.73 RBC 3.80 L Hgb 8.3 L Hct 27.9 L MCV 73.4 L MCH 21.8 L MCHC 29.7 L RDW Std Deviation 49.8 H RDW Coeff of Mina 18.5 H Plt Count 362 MPV 10.0 Immature Gran % (Auto) 0.3 Neut % (Auto) 81.9 Lymph % (Auto) 10.9 [place] % (Auto) 6.7 Eos % (Auto) 0.1 Baso % (Auto) 0.1 Neut # (Auto) 7.97 H Lymph # (Auto) 1.06 L [place] # (Auto) 0.65 H Eos # (Auto) 0.01 Baso # (Auto) 0.01 Immature Gran # (Auto) 0.03 H Polychromasia 1+ Hypochromasia Present Ovalocytes 1+ PT INR APTT PTT Ratio Sodium 139 Potassium 4.0 Chloride 109 H Carbon Dioxide 25 Anion Gap 5 BUN 11 Creatinine 0.78 Est Cr Clr Drug Dosing 108.9 Est GFR ( Amer) 105.7 Est GFR (Non-Af Amer) 91.2 BUN/Creatinine Ratio 14.1 Glucose 106 H Calcium 8.7 Total Bilirubin AST ALT Alkaline Phosphatase Total Protein Albumin Globulin Albumin/Globulin Ratio HCG, Qual SARS-CoV-2, RNA, NAAT Blood Type Blood Type Recheck Antibody Screen Crossmatch
== END 2021-09-03 10:30 | disposition home or self-care (01) ==
LOC: ED 12:26 → ASU 14:50 → 4E1 14:50